=== PATIENT | female | born 1975 | race Caucasian/White ===

== ENCOUNTER 2023-09-24 10:54 | Outpatient (CLI) | payer MEDICARE, SELFPAY ==
--- NOTE | ~2023-09-24 | MR_ITS ---
MRI of the left ankle Clinical history: Pain Technique: Coronal proton-density and proton-density fat-sat images, axial proton-density and proton- density fat-sat images, and sagittal proton-density and proton-density fat-sat images were acquired. Findings: Syndesmotic ligaments are intact. There is thickening and increased signal of the anterior talofibular ligament. Posterior talofibular ligament and calcaneofibular ligament are intact. Deltoid ligament is intact. Medial flexor tendons, peroneal tendons, anterior extensor tendons, and Achilles tendon are intact. There is no osteochondral lesion of the talar dome. Suspected small bone infarcts in the posterior ca lcaneus. No other bone marrow signal abnormality evident. There is moderate degenerative change of th e dorsal aspect of the talonavicular articulation. No significant joint effusion seen. Plantar fascia intact. Normal signal preserved in the sinus Tarsi. No soft tissue mass or fluid colle ction evident. Impression: Thickening and increased signal of the anterior talofibular length suggesting correlate with prior sp rain. 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 Moderate degenerative change of the dorsal aspect of the talonavicular articulation. Reviewed, dictated and finalized at location . Impression: Thickening and increased signal of the anterior talofibular length suggesting c orrelate with prior sprain. 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 Moderate degenerative change of the dorsal aspect of the talonavicular articula tion.
== END 2023-09-24 10:55 ==
LOC: MICIMG 10:56
PROVIDERS: Visit Provider Podiatrist Foot & Ankle Surgery
DX: M25.572 Pain in left ankle and joints of left foot (principal)
CPT/HCPCS: 73721